=== PATIENT | female | born 1985 ===

== ENCOUNTER 2019-11-23 21:49 | Inpatient (IN) | payer BC ==
[2019-11-23] MEDS ORDERED: Lactated Ringers 1000 ML Bag* 1,000 ML IV ONE (22:49)
--- NOTE | 2019-11-23 22:58 | HP ---
General Information - Reason for Visit IUP at 40 weeks with regular uterine contractions - General Information Maternal Age: 34 Grav: 1 Para: 0 SAB: 0 IEA: 0 Estimated Due Date: 11/23/19 Determined By: Early Ultrasound Gestational Age in Weeks/Days: 40-0/7 Maternal Blood Type and Rh: O Positive - Results this Serology/RPR Result: Non-Reactive Rubella Result: Immune HBsAg Result: Negative HIV Result: Negative GBS Culture Result: Negative Past Medical History Delivery History: See Records Delivery History Comment: Primip Pertinent Past Medical History: See Records Past Medical History Comment: Hx of depression/anxiety - medication use in her teens. 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 Childhood asthma - no current medications Pertinent Past Surgical History: None Pertinent Family History: See Records Family History Comment: Father: Hypertension, DM - Antepartal Records Antepartal Records: Reviewed, Complicated by: - Fetus with echogenic focus on 20 week scan - pt declined further screening Review of Systems Constitutional: Uncomfortable - with contractions CV Complaint: No Respiratory: Shortness of Breath: No Gastrointestinal: No Nausea/Vomiting, Normal Bowel Movement Genitourinary: No Dysuria, No Bleeding, No Leaking Fluid Musculoskeletal: Contractions Neurological: No Headache, No Visual Changes Movement: Normal Exam Allergies/Adverse Reactions: Allergies doxycycline Allergy (Mild, Verified 11/23/19 09:31) Rash BP 118/78 HR 111 RR 20 T 97.8 SpO2 100% on RA - Measurements Height: 5 ft 2 in Weight: 189 lb Weight in lbs: 189.835672 Body Mass Index (BMI): 34.5 Pre- Weight: 140 lb Weight Gained This : 49 lbs and 0 ozs - Exam Breast: Breast Exam Deferred CVA: No CVA Tenderness Extremities: No Edema Heart: Normal Rhythm/Heart Sounds HEENT: No Significant Findings Lungs: Clear Bilaterally Rectal: Rectal Exam Deferred Reflexes: DTR 2+ Thyroid: No Thyromegaly - Abdominal Exam Abdomen Exam: Non-Tender, Fundal Height Consistent with Dates - Ultrasound/Biophysical Profile Ultrasound Status: Not Done Targeted Exam Findings See L&D Outpatient Visit Provider Note for Findings: Yes - Seen 11/23/2019 AM for labor check Estimated Weight: EFW 7lbs by Jesse Cervical Exam: 4cm Effacement: 70% Station: -1 Presenting Part: Vertex - per RN Membrane Status: Intact Sterile Speculum Exam: Not done Bleeding/Discharge: Bloody Show - with exam EFM Findings - External Monitor Findings Baseline Heart Rate: 140 External Monitor Findings: Accelerations Present, No Pattern of Variable or Late Decelerations, Variability Moderate, Baseline Stable External Monitor Findings Comment: No evidence of metabolic acidemia Contractions: Regular, Mild, Moderate Contraction Frequency: q 2-4 Assessment/Plan - Assessment IUP at 40-0/7 in early active labor No evidence of metabolic acidemia - Plan Plan: Admit - Anticipate Vaginal Delivery Plan Comment: Pt with increased discomfort. Will try the tub but will likely want something for pain at some point. Agrees to IV placement after the tub in anticipation of pain relief. Expect normal progression into active labor. Dr. Silveira aware of pt presence and condition, agrees with plan - Date/Time of Admission Date of Admission: 11/23/19 Time of Admission: 22:36
[2019-11-24] MEDS ORDERED: OBEPIDURAL* 250 ML EPIDURAL ONE (00:38)
[2019-11-24] MEDS ORDERED: Phenylephrine 40 MCG/ML SYRINGE IV PUSH PRN ×2 (01:45)
[2019-11-24] MEDS ORDERED: Sodium Citrate/Citric Acid* 15 ML UDC PO PRN (01:45)
[2019-11-24] MEDS ORDERED: Famotidine TAB* 20 MG PO PRN (01:45)
[2019-11-24] MEDS ORDERED: Lactated Ringers 1000 ML Bag* 1,000 ML IV ONE (01:45)
[2019-11-24] MEDS ORDERED: Lactated Ringers 1000 ML Bag* 500 ML IV PRN ×2 (01:45)
--- NOTE | 2019-11-24 01:53 | PN ---
Progress Note - Progress Note Date of Service: 11/24/19 Note: S: Pt comfortable s/p epidural placement. Ready to get some rest O: BP 118/69 HR 107 FHT 140bpm. Moderate variability. +Accels. No decels UCs q 1-3 VE 5cm/90%/vtx -1 A: IUP at 40-1/7 in labor No evidence of metabolic acidemia P: Encourage rest. RN to aid with position changes q 30 min. Consider amniotomy PRN. Close monitoring of maternal/ status.
[2019-11-24] MEDS ORDERED: Lactated Ringers 1000 ML Bag* 1,000 ML IV SCH ×2 (02:00→16:00)
[2019-11-24] MEDS ORDERED: OBEPIDURAL* 250 ML EPIDURAL SCH (02:00)
--- NOTE | 2019-11-24 05:50 | PN ---
Progress Note - Progress Note Date of Service: 11/24/19 Note: S: Pt resting comfortably. Denies increased pressure O: BP 103/60 HR 98 RR 16 T 98.7 FHT: 135bpm. Moderate variability. +Accels. No decels at present although rare variable decels with UCs since last check UCs q 2-5 min VE: 5cm/100%/vtx -1, AROM to blood tinged fluid A: IUP at 40-1/7 in labor No evidence of metabolic acidemia P: PARQ amniotomy. Pt agrees. Re-positioned in bed. Encouraged more active positioning. Close monitoring of maternal/ status.
[2019-11-24 06:35] LABS: Urine Benzodiazepine Screen None Detected (None Detect); Urine Opiates Screen None Detected (None Detect)
--- NOTE | 2019-11-24 07:59 | PN ---
Progress Note - Progress Note Date of Service: 11/24/19 Note: S: Pt resting comfortably. Is aware of UCs and increased pressure but manageable O: BP 119/78 HR 101 T 98.2 FHT 135bpm. Moderate variability. +Accels. Rare variable decels UCs q 3-4 VE 5cm/100%/vtx -1, unchanged A: IUP at 40-1/7 in labor No evidence of metabolic acidemia P: Counseled for trial of IUPC and possible addition of IV pitocin. Pt agrees. IUPC placed. Report to Cally Ponce CNM who will assume care at 0800
[2019-11-24] MEDS ORDERED: Oxytocin in LR* 20 UNITS/1,000 ML BAG IVPB SCH (08:00)
--- NOTE | 2019-11-24 09:41 | PN ---
Progress Note - Progress Note Date of Service: 11/24/19 SOAP: Subjective: Pt comfortable with epidural Objective: FHR: Baseline 140/ moderate variability/ variable decels intermittently and several prolonged decels lasting several minutes to FHR in the 90s. UCs: MVUs 155 Cervix: 5cm/ 0 station/ mildly edematous Pitocin was as high as 4 mu/min, turned off due to Cat II FHR Assessment: No cervical change, other than development of mild edema Category II FHR tracing, improves with O2, position changes, and stopping Pitocin. Concerned re possible arrest disorder, intolerance of increasing ctx strength. Plan: Pt informed of concerns. Advised that may be necessary, but at this time can continue to labor if desired. She would like to keep trying for now. Will do position changes, as well as side-lying release. Will attempt to restart Pitocin if FHR tracing tolerates.
--- NOTE | 2019-11-24 11:10 | PN ---
Progress Note - Progress Note Date of Service: 11/24/19 Note: FHR currently baseline 130/ moderate variability/ + accels/ occasional variable decels. MVUs 165. Pitocin at 3 mu/min. Pt comfortable. Will continue to carefully increase Pitocin and attempt to get MVUs to >200. Consulted [address] Dr[address] Meyers, advised of concerns re possible arrest disorder, intolerance of labor, but currently stable and will continue to labor for now.
--- NOTE | 2019-11-24 13:30 | PN ---
Progress Note - Progress Note Date of Service: 11/24/19 SOAP: Subjective: Pt feeling more pressure. Using bolus button on epidural. at bedside. Objective: Cervix unchanged from previous exam. FHR: Baseline 125/ moderate variability/ intermittent variable and late decels MVUs: <200 Fluid clear with bloody show Assessment: UCs still not adequate but difficulty increasing Pitocin as FHR Category II with decelerations. Cervix unchanged, suggestive of arrest of dilation. Plan: Discussed options with pt, including vs continuing to try to increase Pitocin and use position changes. Pt prefers to continue to labor at this time.
[2019-11-24] MEDS ORDERED: ceFAZolin 2 GM PREMIX in ORs 2 GM/50 ML BAG ONE (13:38)
--- NOTE | 2019-11-24 14:03 | PN ---
Progress Note - Progress Note Date of Service: 11/24/19 Note: FHR began to exhibit late decelerations. Pitocin stopped and pt repositioned. FHR continued to be Category I. Cervix unchanged. Pt counseled that recommended at this time for arrest of dilation and Category II tracing remote from delivery. Pt and agree. Dr. Meyers notified and spoke with pt.
[2019-11-24] MEDS ORDERED: OXYTOCIN* 10 UNITS/ML 1 ML VIAL ONE (14:35)
[2019-11-24] MEDS ORDERED: fentaNYL* 50 MCG/ML 2 ML VIAL (100 MCG VIAL) ONE ×2 (14:36→15:06)
[2019-11-24] MEDS ORDERED: HYDROmorphone INJ1* 1 MG/ML SYRINGE IV PRN (15:02)
[2019-11-24] MEDS ORDERED: Naloxone* 0.4 MG/ML 1 ML VIAL IV PRN ×3 (15:02→16:35)
[2019-11-24] MEDS ORDERED: Ondansetron INJ* 2 MG/ML VIAL IV PRN ×2 (15:02→15:19)
[2019-11-24] MEDS ORDERED: fentaNYL* 50 MCG/ML 2 ML VIAL (100 MCG VIAL) IV PRN (15:02)
[2019-11-24] MEDS ORDERED: Ketorolac INJ* 30 MG/ML 1 ML VIAL ONE (15:05)
[2019-11-24] MEDS ORDERED: Morphine 10 MG/ML VIAL (1 ml) ONE (15:10)
[2019-11-24] MEDS ORDERED: Morphine PF AMP (0.5MG/ML)* 5 MG/10 ML AMP ONE (15:10)
[2019-11-24] MEDS ORDERED: diPHENhydraMINE IV* 50 MG/ML 1 ml VIAL (BENADRYL) IV PRN (15:19)
[2019-11-24] MEDS ORDERED: Scopolamine 1.5 mg* PATCH TRANSDERM PRN (15:19)
[2019-11-24] MEDS ORDERED: DiMENhydriNATE IV* 50 MG/ML VIAL IV PUSH PRN (15:19)
[2019-11-24] MEDS ORDERED: PROCHLORPERAZINE INJ 5 MG/ML 2 ML VIAL IV PRN (15:19)
[2019-11-24] MEDS ORDERED: Witch Hazel PAD* JAR TOPICAL PRN (15:37)
[2019-11-24] MEDS ORDERED: Dibucaine 1% 28.35 GM TUBE PR PRN (15:37)
[2019-11-24] MEDS ORDERED: Glycerin ADULT SUPP PR PRN (15:37)
[2019-11-24] MEDS ORDERED: oxyCODONE TAB* 5 MG TAB PO PRN (16:35)
[2019-11-24] MEDS ORDERED: oxyCODONE/Acetamin 5/325 MG* TAB ONE (16:39)
[2019-11-24] MEDS: oxyCODONE/Acetamin 5/325 MG* TAB PO PRN (16:45)
[2019-11-24] MEDS: Docusate CAP* 100 MG PO SCH (20:33)
[2019-11-24] MEDS: Simethicone TAB* 80 MG TAB.CHEW PO SCH (20:33)
[2019-11-24] MEDS: Ketorolac INJ* 30 MG/ML 1 ML VIAL IV PRN (23:09)
[2019-11-25] MEDS: oxyCODONE/Acetamin 5/325 MG* TAB PO PRN (03:47)
[2019-11-25] MEDS: Ketorolac INJ* 30 MG/ML 1 ML VIAL IV PRN (05:26)
[2019-11-25] MEDS ORDERED: oxyCODONE TAB* 5 MG TAB PO PRN (07:15)
[2019-11-25 07:33] LABS: ABS Eosinophils 0.1 10^3/ul (0-0.6); ABS Lymphocytes 2.1 10^3/ul (1.0-4.8); ABS Monocytes 0.6 10^3/ul (0-0.8); ABS Neutrophils 8.5 10^3/ul (1.5-7.7); Hematocrit 28 % (35-47); Hemoglobin 9.7 g/dL (12.0-16.0); Mean Corpuscular HGB Conc 35 g/dL (31-36); Mean Corpuscular Hemoglobin 34 pg (27-31); Mean Corpuscular Volume 99 fL (80-97); Mean Platelet Volume 9.4 fL (7.4-10.4); Platelet Count 103 10^3/uL (150-450); Red Blood Count 2.83 10^6 /uL (3.70-4.87); Red Cell Distribution Width 14 % (10-15); White Blood Count 11.3 10^3/uL (3.5-10.8)
[2019-11-25] MEDS: Docusate CAP* 100 MG PO SCH ×3 (07:50→20:18)
[2019-11-25] MEDS: Simethicone TAB* 80 MG TAB.CHEW PO SCH ×4 (07:50→20:18)
[2019-11-25] MEDS: oxyCODONE TAB* 5 MG TAB PO PRN ×3 (08:21→20:19)
[2019-11-25] MEDS: Ferrous Gluconate TAB* 324 MG TAB PO SCH ×2 (10:05→20:18)
[2019-11-25] MEDS: Ibuprofen TAB* 600 MG PO PRN ×2 (12:00→18:11)
[2019-11-25] MEDS ORDERED: Acetaminophen TAB* 325 MG PO PRN (15:37)
[2019-11-25] MEDS: Oseltamivir CAP* 75 MG CAP PO SCH (18:13)
[2019-11-25] MEDS ORDERED: Zolpidem TAB* 5 MG PO PRN (21:00)
[2019-11-26] MEDS: oxyCODONE TAB* 5 MG TAB PO PRN ×5 (00:52→20:47)
[2019-11-26] MEDS: Ferrous Gluconate TAB* 324 MG TAB PO SCH ×2 (09:17→20:47)
[2019-11-26] MEDS: Ibuprofen TAB* 600 MG PO PRN ×3 (09:17→22:53)
[2019-11-26] MEDS: Simethicone TAB* 80 MG TAB.CHEW PO SCH ×5 (09:18→20:48)
[2019-11-26] MEDS: Docusate CAP* 100 MG PO SCH ×3 (09:18→20:47)
[2019-11-26] MEDS: Oseltamivir CAP* 75 MG CAP PO SCH (20:47)
[2019-11-27] MEDS: Ibuprofen TAB* 600 MG PO PRN (06:35)
[2019-11-27 08:06] VITALS: BP 131/78
[2019-11-27] MEDS: Simethicone TAB* 80 MG TAB.CHEW PO SCH (09:05)
[2019-11-27] MEDS: Ferrous Gluconate TAB* 324 MG TAB PO SCH (09:05)
[2019-11-27] MEDS: Docusate CAP* 100 MG PO SCH (09:05)
[2019-11-27] MEDS: Oseltamivir CAP* 75 MG CAP PO SCH (09:05)
[2019-11-27] MEDS ORDERED: Scopolamine PATCH Remove* 1 NOTE MISC PATCH OFF PRN (15:21)
--- NOTE | 2019-12-09 08:05 | OP ---
CC: Elizabeth Srinivasan CNM * DATE OF OPERATION: 11/24/19 - ROOM #103 DATE OF : 85 SURGEON: Alec Meyers MD LATHE SETUP OPERATOR: Elizabeth Srinivasan, certified nurse cancer program coordinator. ANESTHESIA: Epidural. PRE-OP DIAGNOSIS: Category II tracing, arrest of dilation. POST-OP DIAGNOSIS: Category II tracing, arrest of dilation. OPERATIVE PROCEDURE: Primary low-transverse section. ESTIMATED BLOOD LOSS: 600 cc. URINE OUTPUT: Clear. FLUIDS: She received 750 cc of IV crystalloid fluid. FINDINGS: Delivery of a viable female infant over clear fluid with large caput weighing 7 pounds 3 ounces with Apgars of 9 and 9. The placenta, uterus, adnexa , bowel and bladder were all within normal limits and there were no complications. SPECIMENS: Sent to Pathology was cord blood. DESCRIPTION OF PROCEDURE: The patient was taken to the operating room where she was identified. She was placed on the operating room table where an epidural anesthetic was obtained without difficulty. She was then placed in a supine position with a left-méndez tilt, prepped and draped in a normal sterile fashion. A Pfannenstiel skin incision was then made with a knife and carried through to the underlying layer of fascia. The fascia was nicked in the midline , extended laterally with curved Aguilera scissors. The fascia was then grasped superiorly and inferiorly with Theresa clamps and dissected out sharply from the rectus muscle. The rectus muscle was bluntly. The peritoneum was identified, grasped with pickups, and entered sharply with Metzenbaum scissors and extended superiorly and inferiorly sharply. A bladder blade was inserted into the patient's abdomen. A bladder flap was created using Metzenbaum scissors over which a bladder was then reinserted. A low transverse uterine incision was made with a knife and extended laterally with bandage scissors. The amniotic sac was ruptured. The infant's head was then grasped and delivered atraumatically. The rest of the infant's body was then delivered. The cord was clamped and cut and the was then handed off to the awaiting cryptographic center specialist. Cord bloods were obtained, the placenta was removed manually. The uterus was then exteriorized, cleared of all clots and debris using moist laparotomy sponges. The uterine incision was then closed using 0 Polysorb suture in a running locked fashion with a second imbricating layer of 0 Polysorb suture with good hemostasis noted. The uterus was then returned into the patient's abdomen. The gutters were then cleared of all clot and debris using moist laparotomy sponges. All the sponges and instruments were removed from the patient's abdomen. The peritoneum was then closed using 2-0 Polysorb suture in a running fashion. The facia was closed using 0 Polysorb suture in a running fashion and the skin was closed with a 4-0 Monocryl subcuticular stitch. The patient tolerated the procedure well. Sponge, lap, and needle counts were correct x2. She was then transferred to the recovery room area in stable condition. [id number]/[facility] #: [id number] SYDNEE
== END 2019-11-27 11:42 | disposition home or self-care (01) | DRG 540 ==
LOC: MCHOBOUT 21:49 → MCHOB 22:36
PROVIDERS: ADMIT Midwife; ATTEND Obstetrics & Gynecology
PROC: 10907ZC Drainage of Amniotic Fluid, Therapeutic from Products of Conception, Via Natural or Artificial Opening (ICD-10-PCS; 2019-11-24)
PROC: 10D00Z1 Extraction of Products of Conception, Low, Open Approach (ICD-10-PCS; principal; 2019-11-24 14:16)
DX: O48.0 Post-term pregnancy (principal); Z3A.40 40 weeks gestation of pregnancy; O62.0 Primary inadequate contractions; O76 Abnormality in fetal heart rate and rhythm complicating labor and delivery; Z37.0 Single live birth; O90.81 Anemia of the puerperium; D64.9 Anemia, unspecified
CPT/HCPCS: 36415; 80307; 85025; A9270-GY; G0480; J0690; J1885; J2270; J2590; J3010